=== PATIENT | female | born 1965 | race Caucasian/White ===

== ENCOUNTER 2024-12-16 09:20 | Outpatient (CLI) | payer BC, SELFPAY ==
--- NOTE | 2024-12-16 09:45 | CRLHL7_ITS ---
For Patients: As a result of the Cures Act, medical imaging exams and procedure reports are released immediately into your electronic medical record. You may view this report before your referring provider. If you have questions, please contact your health care provider. BILATERAL DIAGNOSTIC MAMMOGRAM WITH COMPUTER-AIDED DETECTION AND TOMOSYNTHESIS RIGHT BREAST ULTRASOUND CLINICAL HISTORY: RIGHT breast mass/asymmetry. COMPARISON: 04/25/2019, 06/12/2017, 05/11/2016. TECHNIQUE: Digital BILATERAL mammogram in four projections with computer-aided detection. Tomosynthesis was used in this interpretation. Real-time ultrasound imaging of RIGHT breast with imaging documentation. Scanning was performed by both the technologist and the radiologist. BREAST COMPOSITION: There are scattered areas of fibroglandular density. FINDINGS: 3D CC/MLO BILATERAL mammogram images submitted. RIGHT periareolar skin thickening noted. No architectural distortion. No suspicious calcifications. Mildly prominent RIGHT axillary lymph nodes are present compatible with reactive lymph nodes in the setting of cellulitis. Targeted ultrasound RIGHT breast 2 o`clock 1 cm from the nipple performed. Skin thickening is present. No underlying fluid collection or abscess. No suspicious mass. IMPRESSION: RIGHT breast skin thickening at 2 o`clock 1 cm from the nipple. No underlying mass or abscess. Reactive RIGHT axillary lymph nodes. No suspicious findings. RECOMMENDATIONS: Clinical follow-up. Routine screening mammography. A lay language report of this examination will be provided to the patient. BI-RADS Category 2: Benign Dictated by Bradly Yin MD @ 12/16/2024 11:06:25 AM /sp SP/Dictated by: Bradly Yin MD @ 12/16/2024 11:06:00 AM (Electronically Signed)
--- NOTE | 2024-12-16 10:15 | CRLHL7_ITS ---
For Patients: As a result of the Century Cures Act, medical imaging exams and procedure reports are released immediately into your electronic medical record. You may view this report before your referring provider. If you have questions, please contact your health care provider. PLEASE SEE BILATERAL BREAST DIAGNOSTIC MAMMOGRAM PERFORMED SAME DAY. CRL:sp SP/Dictated by: Bradly Yin MD @ 12/16/2024 11:06:00 AM (Electronically Signed)
== END 2024-12-16 09:21 | disposition home or self-care (01) ==
LOC: MAMMO 09:21
PROVIDERS: Visit Provider Family Medicine
DX: N63.10 Unspecified lump in the right breast, unspecified quadrant (principal)
CPT/HCPCS: 76642; 77066; G0279